=== PATIENT | female | born 1975 | race Caucasian/White ===

== ENCOUNTER 2020-12-01 20:54 | Emergency (ER) | payer OTHER ==
[2020-12-01 21:14] LABS: HEMOGLOBIN 14.8 gm/dl (12.3-15.3); RED BLOOD COUNT 4.58 M/UL (4.00-5.10); WHITE BLOOD COUNT 5.6 K/UL (4.5-11.0)
[2020-12-01 21:38] LABS: BUN/CREATININE RATIO 13 (0-10)
== END 2020-12-02 03:22 | disposition home or self-care (01) ==
LOC: ER1 20:54
PROVIDERS: Physician Assistant
DX: F10.129 Alcohol abuse with intoxication, unspecified (principal); Y90.8 Blood alcohol level of 240 mg/100 ml or more; R41.0 Disorientation, unspecified; R11.10 Vomiting, unspecified; I10 Essential (primary) hypertension; Z79.899 Other long term (current) drug therapy
CPT/HCPCS: 70450; 71045; 80053; 80307; 81001; 82140; 82550; 82553; 82962; 83874; 84439; 84443; 84484; 84703; 85025; 87086; 93005; 96374; 96376; 99285; G0480; J2405

== ENCOUNTER 2021-08-04 12:40 | Emergency (ER) | payer OTHER ==
[2021-08-04 14:17] LABS: HEMOGLOBIN 13.9 gm/dl (12.3-15.3); RED BLOOD COUNT 4.31 M/UL (4.00-5.10); WHITE BLOOD COUNT 4.7 K/UL (4.5-11.0)
[2021-08-04 15:28] LABS: BUN/CREATININE RATIO 15 (0-10)
[2021-08-04] MEDS ORDERED: ZOFRAN 4 MG TAB4 MG PO (15:51)
== END 2021-08-04 16:20 | disposition home or self-care (01) ==
LOC: ER1 12:40
PROVIDERS: Physician Assistant
DX: U07.1 COVID-19 (principal); I10 Essential (primary) hypertension; R51.9 Headache, unspecified
CPT/HCPCS: 0240U; 71045; 80053; 81001; 84703; 85025; 99284